=== PATIENT | male | born 1975 | race Caucasian/White ===

== ENCOUNTER 2018-07-07 10:31 | Emergency (ER) | payer BC ==
[~2018-07-07] VITALS: Ht 180.3 cm; Wt 83.9 kg
== END 2018-07-07 11:22 | disposition home or self-care (01) ==
LOC: ED 10:31
DX: R13.10 Dysphagia, unspecified (principal); Z88.7 Allergy status to serum and vaccine

== ENCOUNTER → 2020-02-06 | Outpatient (CLI) | payer BC | END | disposition home or self-care (01) | LOC: COVID19 00:17 | PROVIDERS: ATTEND Internal Medicine | DX: Z20.828 Contact with and (suspected) exposure to other viral communicable diseases (principal) ==

== ENCOUNTER 2022-01-08 07:31 | Emergency (ER) | payer BC ==
[~2022-01-08] VITALS: Ht 180.3 cm; Wt 86.2 kg
[2022-01-08 08:08] LABS: BASO % 0.3 % (0.0-1.0); EOS # 0.1 10*3/uL (0.0-0.4); EOS % 1.3 % (1.0-4.0); HEMATOCRIT 40.4 % (42.0-52.0); LYMPH % 21.4 % (27.0-41.0); MEAN CELL VOLUME 87.4 fl (80.0-94.0); MEAN CORPUSCULAR HGB 31.6 pg (27.0-31.0); MEAN CORPUSCULAR HGB CONC 36.1 g/dl (33.0-37.0); MEAN PLATELET VOLUME 9.2 fl (9.6-12.3); MONO # 0.6 10*3/uL (0.1-1.0); NEUT # 6.6 10*3/uL (2.3-7.9); NEUT % 70.8 % (47.0-73.0); PLATELET COUNT AUTOMATED 276 10*3/uL (130-400); RED BLOOD COUNT 4.62 10*6/uL (4.50-5.90); RED CELL DISTRI WIDTH 11.6 % (0-14.5); WHITE BLOOD COUNT 9.4 10*3/uL (4.8-10.8)
[2022-01-08 08:35] LABS: ALKALINE PHOSPHATASE 82 U/L (45-117); BUN 14 mg/dl (7-24); CHLORIDE 108 mmol/L (98-107); CREATININE 0.82 mg/dL (0.70-1.30); LIPASE 80 U/L (73-393); POTASSIUM 3.3 mmol/L (3.5-5.1); SGOT/AST 30 IU/L (3-35); SGPT/ALT 63 U/L (12-78); SODIUM 139 mmol/L (136-145); TOTAL PROTEIN 6.9 gm/dL (6.4-8.2)
[2022-01-08] MEDS ORDERED: OMEPRAZOLE40 MG PO (10:36)
== END 2022-01-08 10:46 | disposition home or self-care (01) ==
LOC: ED
PROVIDERS: Internal Medicine
DX: K21.9 Gastro-esophageal reflux disease without esophagitis (principal); Z88.7 Allergy status to serum and vaccine

== ENCOUNTER 2024-10-06 07:48 | Emergency (ER) | payer SELFPAY ==
[~2024-10-06] VITALS: Ht 182.8 cm; Wt 86.2 kg
[~2024-10-06 07:48] MED LIST: OMEPRAZOLE40 MG PO
[2024-10-06] MEDS ORDERED: SUBOXONE 8 MG-1 EACH BC (08:01)
[2024-10-06] MEDS ORDERED: Ondansetron Hydrochloride 4 MG/2 ML VIAL IV ONE (08:25)
[2024-10-06] MEDS ORDERED: SODIUM CHLORIDE 0.9% 1,000 ML IV ONE (08:25)
[2024-10-06] MEDS ORDERED: IOHEXOL 300 MG/ML 100 ML VIAL IV ONE (08:30)
[2024-10-06 08:47] LABS: BASO % 0.4 % (0.0-1.0); EOS % 0.2 % (1.0-4.0); HEMATOCRIT 42.5 % (42.0-52.0); MEAN CELL VOLUME 86.4 fl (80.0-94.0); MEAN CORPUSCULAR HGB 30.5 pg (27.0-31.0); MEAN CORPUSCULAR HGB CONC 35.3 g/dl (33.0-37.0); MONO # 0.6 10*3/uL (0.1-1.0); MONO % 12.1 % (3.0-9.0); NEUT # 3.3 10*3/uL (2.3-7.9); NEUT % 63.4 % (47.0-73.0); PLATELET COUNT AUTOMATED 315 10*3/uL (130-400); RED BLOOD COUNT 4.92 10*6/uL (4.50-5.90); RED CELL DISTRI WIDTH 11.9 % (0-14.5); WHITE BLOOD COUNT 5.2 10*3/uL (4.8-10.8)
[2024-10-06 09:07] LABS: ALKALINE PHOSPHATASE 104 U/L (46-116); BUN 15 mg/dl (9-23); CHLORIDE 102 mmol/L (98-107); POTASSIUM 4.7 mmol/L (3.4-5.1); SGPT/ALT 233 U/L (5-49); TOTAL PROTEIN 7.9 gm/dL (6.0-8.0)
[2024-10-06] MEDS ORDERED: MEDROL DOSEPAK4 MG PO (12:09)
== END 2024-10-06 12:15 | disposition home or self-care (01) ==
LOC: ED 07:48
PROVIDERS: Internal Medicine
DX: R09.A2 Foreign body sensation, throat (principal); R74.01 Elevation of levels of liver transaminase levels; Z98.890 Other specified postprocedural states

== ENCOUNTER 2024-11-08 05:35 | Emergency (ER) | payer OTHER ==
[~2024-11-08] VITALS: Ht 180.3 cm; Wt 86.2 kg
[~2024-11-08 05:35] MED LIST changes: +MEDROL DOSEPAK4 MG PO; +SUBOXONE 8 MG-1 EACH BC
[2024-11-08] MEDS ORDERED: BUPRENORPHINE HCL/NALOXONE 8 MG-2 MG SL TABLET SL ONE (05:55)
== END 2024-11-08 06:07 | disposition home or self-care (01) ==
LOC: ED 05:35
DX: Z04.89 Encounter for examination and observation for other specified reasons (principal); Z79.899 Other long term (current) drug therapy; Z88.7 Allergy status to serum and vaccine; Z98.890 Other specified postprocedural states

== ENCOUNTER 2024-11-10 04:08 | Emergency (ER) | payer OTHER ==
[~2024-11-10] VITALS: Ht 182.9 cm; Wt 86.2 kg
== END 2024-11-10 05:22 | disposition home or self-care (01) ==
LOC: ED 04:08
DX: F11.90 Opioid use, unspecified, uncomplicated (principal); Z76.0 Encounter for issue of repeat prescription; R45.1 Restlessness and agitation; K21.9 Gastro-esophageal reflux disease without esophagitis; Z88.6 Allergy status to analgesic agent; Z79.899 Other long term (current) drug therapy